=== PATIENT | male | born 1970 ===

== ENCOUNTER 2019-12-31 09:56 | Day surgery (SDC) | payer BC ==
--- NOTE | 2019-12-30 12:14 | PCM.PREANE ---
<Francine Sparks - Last Filed: 12/30/19 12:09> Preanesthetic Assessment - Anesthesia/Transfusion/Family Hx Anesthesia History: Prior Anesthesia Without Reaction Family History of Anesthesia Reaction: No Transfusion History: No Prior Transfusion(s) Intubation History: Unknown - Review of Systems Gastrointestinal: Abdominal Pain (acute/epigastric) Other: Reports: None (History of ADD), Diabetes (History of elevated fasting glucose), Sinus Problem (acute sinusitis) - Physical Assessment NPO Status Date: 12/30/19 Vital Signs: Last Vital Signs Temp 36.6 C 12/31/19 10:30 Pulse 78 12/31/19 10:30 Resp 16 12/31/19 10:30 BP 157/93 H 12/31/19 10:30 Pulse Ox 96 12/31/19 10:30 HR: BP: Sat: Resp: Temp: Height: 1.78 m ASA Class: 2 Mental Status: Alert & Oriented x3 - Lab Values: Laboratory Last Values MRSA (PCR) Negative 12/30/19 11:20 All labs reviewed and noted and within acceptable ranges to proceed with scheduled procedure. - Imaging/EKG Impressions: CXR: negative EKG:SR rate= 73 borderline criteria for LVH. - Anesthesia Plan Pre-Op Medication Ordered: None - Acknowledgements Anesthesia Type Planned: General Anesthesia Pt an Appropriate Candidate for the Planned Anesthesia: Yes Alternatives and Risks of Anesthesia Discussed w Pt/Guardian: Yes Pt/Guardian Understands and Agrees with Anesthesia Plan: Yes PreAnesthesia Questionnaire - CURRENT (IN HOUSE) MEDS Current Meds: Current Medications Lactated Ringer's (Ringers, Lactated) 1,000 mls @ 125 mls/hr IV ASDIRECTED TOREY Stop: 12/31/19 23:00 Lidocaine/Sodium Bicarbonate (Buffered Lidocaine 1% In Ns 8.4%) 0.25 ml IDERM ONETIME PRN PRN Reason: Prior to IV Start Stop: 12/31/19 18:00 Sodium Chloride (Saline Flush) 10 ml FLUSH ASDIRECTED PRN PRN Reason: Keep Vein Open Stop: 12/31/19 18:00 Discontinued Medications Cefazolin Sodium (Ancef) Confirm Administered Dose 2 gm .ROUTE .STK-MED ONE Stop: 12/31/19 05:59 Dexamethasone (Dexamethasone) Confirm Administered Dose 20 mg .ROUTE .STK-MED ONE Stop: 12/31/19 05:59 Fentanyl (Sublimaze) Confirm Administered Dose 250 mcg .ROUTE .STK-MED ONE Stop: 12/31/19 05:59 Hydromorphone HCl (Dilaudid) Confirm Administered Dose 0.5 mg .ROUTE .STK-MED ONE Stop: 12/31/19 05:59 Lidocaine HCl (Xylocaine-Mpf 1%) Confirm Administered Dose 6 mls @ as directed .ROUTE .STK-MED ONE Stop: 12/31/19 05:59 Lactated Ringer's (Ringers, Lactated) Confirm Administered Dose 1,000 mls @ as directed .ROUTE .STK-MED ONE Stop: 12/31/19 05:59 Ketorolac Tromethamine (Toradol) Confirm Administered Dose 30 mg .ROUTE .STK- MED ONE Stop: 12/31/19 05:59 Midazolam HCl (Versed 1 Mg/Ml) Confirm Administered Dose 2 mg .ROUTE .STK-MED ONE Stop: 12/31/19 05:59 Ondansetron HCl (Zofran) Confirm Administered Dose 4 mg .ROUTE .STK-MED ONE Stop: 12/31/19 05:59 Propofol (Diprivan 20 Ml) Confirm Administered Dose 200 mg .ROUTE .STK-MED ONE Stop: 12/31/19 05:59 Rocuronium [place] (Zemuron) Confirm Administered Dose 50 mg .ROUTE .STK-MED ONE Stop: 12/31/19 05:59 <Melina Cuba - Last Filed: 12/31/19 10:58> Preanesthetic Assessment - Procedure Proposed Procedure: Right Achilles Tendon Repair - Anesthesia/Transfusion/Family Hx Anesthesia History: No Prior Anesthesia Family History of Anesthesia Reaction: No - Review of Systems General: No Symptoms Pulmonary: No Symptoms Cardiovascular: No Symptoms Gastrointestinal: Abdominal Pain Neurological: No Symptoms Other: Reports: None, Diabetes (History of elevated fasting glucose x 1 with normal A1C. Blood glucose 92mg/dl today. ), Sinus Problem (sinusitis) - Physical Assessment NPO Status Time: 19:00 Weight: 117 kg ASA Class: 2 Airway Class: Mallampati = 2 Dentition: Reports: Normal Dentition Thyro-Mental Finger Breadths: 3 Mouth Opening Finger Breadths: 3 ROM/Head Extension: Full Lungs: Clear to Auscultation, Normal Respiratory Effort Cardiovascular: Regular Rate, Regular Rhythm - Anesthesia Plan Pre-Op Medication Ordered: None - Acknowledgements Anesthesia Type Planned: General Anesthesia Pt an Appropriate Candidate for the Planned Anesthesia: Yes Alternatives and Risks of Anesthesia Discussed w Pt/Guardian: Yes Pt/Guardian Understands and Agrees with Anesthesia Plan: Yes
[~2019-12-31 09:56] MED LIST: Dexamethasone 4 MG/ML 5 ML MDV ONE; HYDROmorphone 0.5 MG/0.5 ML Syringe ONE; Ketorolac 30 MG/ML SDV ONE; Lactated Ringers 1,000 ML IV SCH; Lactated Ringers 1,000 ML ONE; Lidocaine 1% 6 ML ONE; Lidocaine 1%/Sod Bicarbonate in NS 8.4% 1 ML Syringe IDERM PRN; Midazolam 1 MG/ML 2 ML SDV ONE; Ondansetron 4 MG/2 ML SDV ONE; Propofol 200 MG/20 ML SDV ONE; Rocuronium 50 MG/5 ML Vial ONE; Sodium Chloride 0.9% 10 ML Syringe FLUSH PRN; ceFAZolin 1 GM Vial ONE; fentaNYL 250 MCG/5 ML SDV ONE
[2019-12-31] MEDS ORDERED: Bupivacaine 0.25% 10 ML SDV ONE (11:18)
[2019-12-31] MEDS ORDERED: Propofol 200 MG/20 ML SDV ONE (11:38)
[2019-12-31] MEDS ORDERED: Lactated Ringers 1,000 ML ONE (12:12)
[2019-12-31] MEDS ORDERED: Ondansetron 4 MG/2 ML SDV IVPUSH PRN (12:15)
[2019-12-31] MEDS ORDERED: Phenylephrine 1 MG in Sodium Chloride 0.9% 10 ML IV SCH (12:15)
[2019-12-31] MEDS ORDERED: diphenhydrAMINE 50 MG/ML SDV IVPUSH PRN (12:15)
[2019-12-31] MEDS ORDERED: ePHEDrine 50 MG/ML SDV IVPUSH PRN (12:15)
[2019-12-31] MEDS ORDERED: fentaNYL 100 MCG/2 ML SDV IVPUSH PRN (12:15)
[2019-12-31] MEDS ORDERED: Albuterol 0.083% 2.5 MG/3 ML Neb Soln NEB SCH (12:15)
[2019-12-31] MEDS ORDERED: Midazolam 1 MG/ML 2 ML SDV IVPUSH PRN (12:15)
[2019-12-31] MEDS ORDERED: HYDROmorphone 0.5 MG/0.5 ML Syringe IVPUSH PRN (12:15)
[2019-12-31] MEDS ORDERED: HYDROmorphone 0.5 MG/0.5 ML Syringe ONE (12:28)
[2019-12-31] MEDS ORDERED: Labetalol 100 MG/20 ML MDV ONE (12:58)
--- NOTE | 2019-12-31 13:31 | PCM.POSTAN ---
POST ANESTHESIA ASSESSMENT - MENTAL STATUS Mental Status: Alert - VITAL SIGNS Vital Signs: Last Vital Signs Temp 97.6 12/31/19 1324 Pulse 70 12/31/19 1324 Resp 15 12/31/19 1324 BP 151/77 12/31/19 1324 Pulse Ox 98% 12/31/19 1324 - RESPIRATORY Respiratory Status: Respiratory Rate WNL, Airway Patent, O2 Saturation Stable, Supplemental Oxygen - CARDIOVASCULAR CV Status: Pulse Rate WNL, Blood Pressure Stable - GASTROINTESTINAL GI Status: No Symptoms - POST OP HYDRATION Hydration Status: Adequate & Stable
--- NOTE | 2019-12-31 13:33 | PCM48HPAN ---
Post Anesthesia Note - EVALUATION WITHIN 48HRS OF ANESTHETIC Vital Signs in Normal Range: Yes Patient Participated in Evaluation: Yes Respiratory Function Stable: Yes Airway Patent: Yes Cardiovascular Function Stable: Yes Hydration Status Stable: Yes Pain Control Satisfactory: Yes Nausea and Vomiting Control Satisfactory: Yes Mental Status Recovered: Yes Vital Signs: Last Vital Signs Temp 36.6 C 12/31/19 10:30 Pulse 78 12/31/19 10:30 Resp 16 12/31/19 10:30 BP 157/93 H 12/31/19 10:30 Pulse Ox 96 12/31/19 10:30
[2019-12-31] MEDS ORDERED: Acetaminophen/HYDROcodone 325-5 MG Tab PO PRN (13:41)
--- NOTE | 2020-01-04 07:08 | PCM.OPNOTE ---
- General Post-Op/Procedure Note Date of Surgery/Procedure: 12/31/19 Operative Procedure(s): repair of ruptured right achilles tendon Pre Op Diagnosis: right achilles tendon rupture Post-Op Diagnosis: Same Anesthesia Technique: General ET Tube, Local Primary Surgeon: Sanjiv Chandler Anesthesia Provider: Francine Sparks Primer Assembler: Vale Mast in mLs: 5 Complications: None Condition: Good
--- NOTE | 2020-01-04 07:33 | OR ---
DATE OF OPERATION: 12/31/2019 SURGEON: Sanjiv Chandler MD OPERATION PERFORMED: Repair of ruptured right Achilles tendon. PREOPERATIVE DIAGNOSIS: Right Achilles tendon rupture. POSTOPERATIVE DIAGNOSIS: Right Achilles tendon rupture. ANESTHESIA: General endotracheal intubation with local. ANESTHESIA PROVIDER: Francine Sparks CRNA [place] MANAGER: Vale Mast PA-C ESTIMATED BLOOD LOSS: Less than 5 mL. COMPLICATIONS: None. CONDITION: Stable. DESCRIPTION OF PROCEDURE: The patient was identified in the preoperative holding area. Proper site was marked and identified by surgeon. The patient was taken back to the operating theater where after adequate anesthesia, the patient was placed in prone position. Wedges were placed on the chest. Towel was placed underneath the thighs. The patient's neck and arms were in adequate alignment with no excess tension. Right lower extremity had a nonsterile tourniquet applied and was then sterilely prepped and draped in the usual sterile fashion. OR time-out was performed. The patient received 2 g of IV Ancef. Right lower extremity was exsanguinated. Tourniquet was insufflated to 250 mmHg. Standard incision was made posteriorly over the Achilles tendon rupture. This was taken down to the paratenon. Paratenon was then incised and the hematoma then was evacuated at this time. The patient was noted to have 2 large calcification areas right near the rupture of the Achilles tendon. He had roughly 3 cm to be able to whipstitch distally. After resecting the calcium deposits and any nonviable tendinous fibers, a #5 FiberWire was then stitched using a modified Krackow stitch on the proximal segment and then this was done on the distal segment with another #5. Both limbs were then tied together with the patient's foot in plantar flexion. He was found to have adequate confucianism of the length of the Achilles tendon. A #2 FiberWire was then used for over-sew with [id number] stitches so that there was no loose or fraying ends and that it was a smooth transition of the tendinous tissue. Once this was completed, adequate saline was irrigated through the wound. 0 Vicryl was used for closure of the paratenon, 2-0 Vicryl was used subcutaneously, and Monocryl was used for closure of the skin. The patient was placed in a sterile soft dressing and a posterior slab splint and sent to the PACU in stable condition. MMODAL /[id number]
== END 2019-12-31 15:23 | disposition home or self-care (01) ==
LOC: JD.SDS 09:56
PROVIDERS: ATTEND Orthopaedic Surgery
DX: S86.011A Strain of right Achilles tendon, initial encounter (principal); R03.0 Elevated blood-pressure reading, without diagnosis of hypertension; X58.XXXA Exposure to other specified factors, initial encounter
CPT/HCPCS: 27650; 82962; 87641; A9270; J0690; J1100; J1170; J1885; J2001; J2250; J2405; J2704; J2710; J3010; J3490; J7120; 01472

== ENCOUNTER 2020-07-12 12:59 | Emergency (ER) | payer BC ==
[2020-07-12] MEDS ORDERED: Heparin Sodium/D5W 25,000 UNITS/500 ML BAG IV SCH (13:45)
[2020-07-12] MEDS ORDERED: Heparin Sodium 5,000 Units/ML Vial IVPUSH ONE (13:45)
[2020-07-12] MEDS ORDERED: Sodium Chloride 0.9% 1,000 ML IV STA (13:47)
--- NOTE | 2020-07-12 13:55 | EDM.PDOC ---
ED HPI GENERAL MEDICAL PROBLEM - General Chief Complaint: Respiratory Problem Stated Complaint: FROM CT/HIGH BP Time Seen by Provider: 07/12/20 13:09 Source of Information: Reports: Patient History Limitations: Reports: No Limitations - History of Present Illness INITIAL COMMENTS - FREE TEXT/NARRATIVE: Patient is a 49-year-old male sent to the emergency department from the clinic with complaints of shortness of breath with exertion, elevated blood pressure, and new onset murmur. Patient is post COVID. Was diagnosed on 02 June and discharged from quarantine on 08 June. He states he had very mild symptoms including intermittent fevers, mild cough and some congestion. He has been feeling well since that time, however over the last few days he find that he is increasingly short of breath with exertion. States that he walked for 5 minutes on the treadmill a few days ago and was "panting like a dog ". He denies any chronic underlying medical conditions. Per report from Ava Caro NP in the clinic, patient's oxygen saturations were 83 to 84% with ambulation. D-dimer in the clinic was found to be elevated at 1.64, and she did auscultate a new heart murmur. Ava Yun NP, states that she received a call from radiology while the patient was down to receiving a CT angiogram stated that his blood pressures were elevated at 180/100 and that she is sending him to ER for further evaluation and treatment. - Related Data Allergies Allergy/AdvReac Type Severity Reaction Status Date / Time No Known Allergies Allergy Verified 07/12/20 13:10 Home Meds: Home Meds Dextroamphetamine/Amphetamine [Mydayis ER 25 mg Capsule] 25 mg PO DAILY PRN 12/30/19 [History] Past Medical History HEENT History: Reports: Sinusitis Cardiovascular History: Reports: None Respiratory History: Reports: None Gastrointestinal History: Reports: Helicobacter Pylori Genitourinary History: Reports: None MANAGER IMAGE History: Reports: None Musculoskeletal History: Reports: Other (See Below) Other Musculoskeletal History: right achilles injury Neurological History: Reports: None Psychiatric History: Reports: ADD Endocrine/Metabolic History: Reports: Obesity/BMI 30+ Hematologic History: Reports: None Immunologic History: Reports: None Oncologic (Cancer) History: Reports: None Dermatologic History: Reports: Cellulitis - Infectious Disease History Infectious Disease History: Reports: None - Past Surgical History HEENT Surgical History: Reports: Oral Surgery Cardiovascular Surgical History: Reports: None Respiratory Surgical History: Reports: None GI Surgical History: Reports: None Male Surgical History: Reports: None Endocrine Surgical History: Reports: None Neurological Surgical History: Reports: None Musculoskeletal Surgical History: Reports: None Oncologic Surgical History: Reports: None Dermatological Surgical History: Reports: None Social & Family History - Tobacco Use Smoking Status *Q: Never Smoker - Caffeine Use Caffeine Use: Reports: Coffee, Soda - Recreational Drug Use Recreational Drug Use: No ED ROS GENERAL - Review of Systems Review Of Systems: See Below Constitutional: Reports: No Symptoms. Denies: Fever, Chills, Weakness HEENT: Reports: No Symptoms Respiratory: Reports: Shortness of Breath. Denies: Wheezing, Pleuritic Chest Pain, Cough Cardiovascular: Reports: Dyspnea on Exertion. Denies: Chest Pain, Lightheadedness Endocrine: Reports: No Symptoms GI/Abdominal: Reports: No Symptoms : Reports: No Symptoms Musculoskeletal: Reports: No Symptoms Skin: Reports: No Symptoms Neurological: Reports: No Symptoms Psychiatric: Reports: No Symptoms Hematologic/Lymphatic: Reports: No Symptoms Immunologic: Reports: No Symptoms ED EXAM, GENERAL - Physical Exam Exam: See Below Exam Limited By: No Limitations General Appearance: Alert, WD/WN, No Apparent Distress Respiratory/Chest: No Respiratory Distress, Lungs Clear, Normal Breath Sounds, No Accessory Muscle Use, Chest Non-Tender Cardiovascular: Normal Peripheral Pulses, Regular Rate, Rhythm, No Edema, No Gallop, No JVD, No Murmur, No Rub Neurological: Alert, Oriented, CN II-XII Intact, Normal Cognition, Normal Gait, Normal Reflexes, No Motor/Sensory Deficits Psychiatric: Normal Affect, Normal Mood Skin Exam: Warm, Dry, Intact, Normal Color, No Rash Course - Vital Signs Last Recorded V/S: Last Vital Signs Temp 98.3 F 07/12/20 13:05 Pulse 104 H 07/12/20 13:05 Resp 24 H 07/12/20 13:05 BP 194/106 H 07/12/20 13:05 Pulse Ox 88 L 07/12/20 13:05 - Orders/Labs/Meds Meds: Medications Discontinued Medications Generic Name Dose Route Start Last Admin Trade Name Freq PRN Reason Stop Dose Admin Heparin Sodium (Porcine) 5,000 units 07/12/20 13:45 07/12/20 14:04 Heparin Sodium IVPUSH 07/12/20 13:46 5,000 units .BOLUS ONE Administration Heparin Sodium/Dextrose 25,000 units in 500 mls @ 40.823 mls/hr 07/12/20 13:45 07/12/20 14:11 Heparin 25,000 Units In D5w 500 Ml IV 18 units/kg/hr TITRATE TOREY 40.823 mls/hr Administration Protocol 18 UNITS/KG/HR Sodium Chloride 1,000 mls @ 75 mls/hr 07/12/20 13:47 07/12/20 14:10 Normal Saline IV 07/13/20 03:06 75 mls/hr NOW STA Administration - Re-Assessments/Exams Free Text/Narrative Re-Assessment/Exam: Patient is a 49-year-old male sent to the ER from the clinic with complaints of new onset dyspnea with exertion, as well as elevated blood pressures and a new murmur. Results are received of the CT angiogram that was completed in clinic that shows extensive bilateral pulmonary emboli with findings of mild increased right-sided heart pressures. On exam, patient does have a distinct systolic murmur which he states he was unaware of previously. Blood pressures are mildly elevated 170s over 100s. On triage, oxygen saturation was initially 83% on room air after ambulation back to the room. After rest, he did increase to 92% on room air. He is currently on 1 L of oxygen satting 96%. Discussed results of clinic work-up with the patient and that I feel it would not be safe to send him home. I will be making phone calls to look for available beds for transfer as we have no beds available here in [place]. I placed an order to start patient on an heparin drip per [facility] protocol. 07/12/20 14:25 Phone calls made inquiring on transfer. Unfortunately [facility] has no available beds at either facilities. I did initially have accepting for the patient at [facility], however the patient states that he would rather go to [facility]. Called [facility] and spoke with Dr. Wick, the hospitalist. He has accepted the patient for transfer. One call nurse stated that they will call with a bed number and requested that we hold the patient in the ER until that time. [place] ALEJANDRO, has been working with [facility] for transfer and patient will go by helicopter. Patient's vitals concerning be stable. Patient updated on plan he is in agreement. Departure - Departure Time of Disposition: 14:25 Disposition: DC/Tfer to Acute Hospital 02 Condition: Good Clinical Impression: Pulmonary embolism associated with COVID-19 - Discharge Information Referrals: Jennifer Dooley PA-C [Primary Care Provider] - Forms: ED Department Discharge Sepsis Event Note (ED) - Evaluation Sepsis Screening Result: No Definite Risk - Focused Exam Vital Signs: Vital Signs Temp Pulse Resp BP Pulse Ox 07/12/20 13:05 98.3 F 104 H 24 H 194/106 H 88 L
--- OUTSIDE RECORDS SUMMARY | 2020-07-19 08:48 | XMSREPORT ---
:1970 Author Organization [facility] s Address [address] [place] [address] [address] [place] [address] Care Team Providers Name Role Phone Provider, Attributed RESOURCE Attributed Provider Unavailab Sandra Martinez Primary Care Provider Ridge Dooley Primary Care Provider Reason for Visit Reason Comments Auth/Cert Status Reason Specialty Diagnoses / Procedures Referred By Gabriela connolly Referred To Contact Encounter Details Date Type Department Care Team Description 07/12/2020 - [facility] Provider, Generic Hosp Pr ocedure Acute pulmonary 07/14/2020 Encounter [facility] Stiven Dominguez MD [address] [place] [address] [phone] embolism (HCC) [address] [facility] Simon Diaz MD [address] [place] [address] [phone] [place] [address] Allergies No Known Allergiesdocumented as of this encounter (statuses as of 07/14/2020) Medications Medication Sig Dispensed Refills Start End Status Date Date apixaban (ELIQUIS) Take 2 tablets (10 74 tablet 4 07/14/20 Active 5 MG mg) by mouth 2 20 tabletIndications: times a day for 7 Venous days, followed by Thromboembolism 1 tablet (5 mg) 2 times a day. amphetamine-dextroa Take 20 mg by 0 10/09/20 Discontinued mphetamine mouth 1 time a day 16 020 (Stop Taking at (ADDERALL XR) 20 MG in the morning Discharge) extended release capsule apixaban (ELIQUIS) Indications: 74 tablet 0 07/14/20 Discontinued 5 MG Venous 20 020 (Reorder) tabletIndications: Thromboembolism Venous Take 2 tablets (10 Thromboembolism mg) by mouth 2 times a day for 7 days, followed by 1 tablet (5 mg) 2 times a day. apixaban (ELIQUIS) Take 2 tablets (10 74 tablet 4 07/14/20 Discontinued 5 MG mg) by mouth 2 20 020 (Reor esteban) tabletIndications: times a day for 7 Venous days, followed by Thromboembolism 1 tablet (5 mg) 2 times a day. documented as of this encounter (statuses as of 07/14/2020) Active Problems Problem Noted Date Acute pulmonary embolism 07/12/2020 documented as of this encounter (statuses as of 07/14/2020) Social History Tobacco Use Types Packs/Day Years Used Date Never Smoker Smokeless Tobacco: Never Used Alcohol Use Drinks/Week oz/Week Comments Yes socially Sex Assigned at Date Recorded Not on file Job Start Date Occupation Industry Not on file Not on file Not on file Travel History Travel Start Travel End No recent travel history available. documented as of this encounter Last Filed Vital Signs Vital Sign Reading Time Taken Comments Blood Pressure 134/83 07/14/2020 12:00 PM CDT Pulse 77 07/14/2020 12:00 PM CDT Temperature 36.2 C (97.1 F) 07/14/2020 4:00 AM CDT Respiratory Rate 23 07/13/2020 7:34 AM CDT Oxygen Saturation 95% 07/14/2020 12:00 PM CDT Inhaled Oxygen Concentration - - Weight 116.6 kg (257 lb) 07/12/2020 7:28 PM CDT Height 176.5 cm (5' 9.5") 07/12/2020 7:28 PM CDT Body Mass Index 37.41 07/12/2020 7:28 PM CDT documented in this encounter Functional Status Functional Status Response Date of Assessment Do you have difficulty with walking, balance, climbing No 07/13/2020 stairs, or had a fall in the last 3 months? documented as of this encounter Discharge Summaries Not on filedocumented in this encounter Discharge Instructions Brooks Kovacs, PHARM D - 07/14/2020Anticoagulation: Take Apixaban (Eliquis) 10 mg by mouth two times per day for 7 days (through the morning of 07/21/20), then take 5 mg by mouth two times per day until your physician tells you otherwise documented in this encounter Medications at Time of Discharge Medication Sig Dispensed Refills Start Date End Date apixaban (ELIQUIS) 5 MG Take 2 tablets (10 74 tablet 4 06/28 tabletIndications: Venous mg) by mouth 2 times Thromboembolism a day for 7 days, followed by 1 tablet (5 mg) 2 times a day. documented as of this encounter Progress Notes Stiven Dominguez MD - 07/13/2020 1:00 AM [facility] PATIENT NAME: KILO PHILLIPS DATE OF SERVICE: 07/13/2020 FRANCIS: [id number] INTERVAL HISTORY: This is a 49-year-old gentleman who recently had COVID infection, presented with progressive shortness of breath, found to have extensive bilateral PE with right ventricular strain.Patient is seen by cardiology and plan for the EKOS procedure with TPA thrombolysis. REVIEW OF SYSTEMS: CONSTITUTIONAL: Negative. CHEST: Negative. CARDIOVASCULAR: Negative. MUSCULOSKELETAL: Unchanged. GASTROINTESTINAL: Negative. PHYSICAL EXAMINATION: VITALS: Temperature 97.2, pulse 79, blood pressure 143/88. GENERAL: Alert, awake, lying comfortably, in no respiratory distress. CHEST: Air entry equal bilaterally. No wheeze, rhonchi. CARDIOVASCULAR: S1, S2 normal. No murmur or gallop. SKIN: No pigmentation or rashes. MUSCULOSKELETAL: Moves grossly. ASSESSMENT AND PLAN: 1. Acute bilateral PE with right ventricular strain. Patient underwent successful bilateral placement of EKOS catheter in the right and left pulmonary arteries and with T-wave thrombolysis 6 hours and then follow up tomorrow and see how he does. Continue with. 2. GI prophylaxis, on Prilosec 20 mg twice daily. Stiven Dominguez MD Receipt: [id number] Trans ID: [id number]/[facility] PEDIATRIC PATHOLOGIST PEDIATRIC PATHOLOGIST Brooks Fontana, PHARM D - 07/12/2020 11:29 PM CDT Warfarin Initial Consult Note Mr. Phillips has been initiated on warfarin per pharmacy protocol for PE. Desired goal INR is 2-3. Patient is being newly started on anticoagulation therapy. Clinically significant drug interactions: Acetaminophen, heparin Labs: Lab Results Component Value Date INR 1.1 (L) 07/12/2020 PT 13.9 07/12/2020 Protime Date/Time Value Ref Range Status 07/12/2020 06:54 PM 13.9 12.0 - 14.5 secs Final INR Date/Time Value Ref Range Status 07/12/2020 06:54 PM 1.1 (L) 2.0 - 3.5 Final Platelet Count Date/Time Value Ref Range Status 07/12/2020 06:54 PM 217 140 - 400 K/uL Final Hemoglobin Date/Time Value Ref Range Status 07/12/2020 06:54 PM 18.1 (H) 13.5 - 17.5 g/dL Final Plan: Warfarin: 5 mg today. Pharmacy will monitor and if indicated, adjust dose per the anticoagulation policy. Thank you very much for the consult. Brooks Ingram, PHARM D documented in this encounter Plan of Treatment Name Type Priority Associated Diagnoses Date/Ti me ECHO ADULT COMPLETE CVS STAT 07/12/20 20 6:21 PM CDT EKG CVS STAT 07/13/2020 5:3 2 PM CDT EKG CVS Routine 07/14/2020 6:4 9 AM CDT Name Type Priority Associated Diagnoses Order S chedule PROTIME/INR Lab Routine Early AM draw f or labs until discontin ued starting 2019, 2 completed COMPLETE BLOOD COUNT WITH Lab Routine Ea rly AM draw for labs DIFFERENTIAL for 3 Days star ting 07/14/2020 unti l 07/16/2020, 1 c ompleted BASIC METABOLIC PANEL Lab Routine Early AM draw for labs for 3 Days star ting 07/14/2020 unti l 07/16/2020, 1 c ompleted documented as of this encounter Procedures Procedure Name Priority Date/Time Associated Comments Diagnosis ECHO ADULT LIMITED Routine 07/14/2020 1:22 Resul ts for this PM CDT procedure are i n the results section. LAB ONLY-COMPLETE Routine 07/14/2020 10:37 Result s for this BLOOD COUNT WITH AM CDT procedure a re in DIFFERENTIAL the results section. MAGNESIUM Routine 07/14/2020 10:37 Results for this AM CDT procedure are i n the results section. BASIC METABOLIC PANEL Routine 07/14/2020 10:37 Re sults for this AM CDT procedure are i n the results section. LAB ONLY-COMPLETE Routine 07/14/2020 10:37 Result s for this BLOOD COUNT WITH AM CDT procedure a re in DIFFERENTIAL the results section. PTT Timed Routine 07/14/2020 7:55 Results fo r this AM CDT procedure are i n the results section. PROTIME/INR Routine 07/14/2020 6:06 Results for this AM CDT procedure are i n the results section. PTT Timed Routine 07/13/2020 9:29 Results fo r this PM CDT procedure are i n the results section. FIBRINOGEN Timed Routine 07/13/2020 9:29 Results fo r this PM CDT procedure are i n the results section. PTT Timed Routine 07/13/2020 6:23 Results fo r this PM CDT procedure are i n the results section. FIBRINOGEN Timed Routine 07/13/2020 6:23 Results fo r this PM CDT procedure are i n the results section. MISC PROCEDURE CATH Routine 07/13/2020 4:01 Resu lts for this LAB PM CDT procedure are i n the results section. PTT Timed Routine 07/13/2020 8:32 Results fo r this AM CDT procedure are i n the results section. LAB ONLY-COMPLETE Routine 07/13/2020 5:22 Result s for this BLOOD COUNT WITH AM CDT procedure a re in DIFFERENTIAL the results section. PROTIME/INR Routine 07/13/2020 5:22 Results for this AM CDT procedure are i n the results section. BASIC METABOLIC PANEL Routine 07/13/2020 5:22 Re sults for this AM CDT procedure are i n the results section. LAB ONLY-COMPLETE Routine 07/13/2020 5:22 Result s for this BLOOD COUNT WITH AM CDT procedure a re in DIFFERENTIAL the results section. PTT Timed Routine 07/13/2020 2:22 Results fo r this AM CDT procedure are i n the results section. TROPONIN I Timed Routine 07/13/2020 12:26 Results fo r this AM CDT procedure are i n the results section. TROPONIN I Timed Routine 07/12/2020 9:40 Results fo r this PM CDT procedure are i n the results section. LACTIC ACID REFLEX TO Routine 07/12/2020 6:54 Re sults for this REPEAT PM CDT procedure are i n the results section. PTT RUBY 07/12/2020 6:54 Results for this PM CDT procedure are i n the results section. PROTIME/INR RUBY 07/12/2020 6:54 Results for this PM CDT procedure are i n the results section. COMPLETE BLOOD COUNT RUBY 07/12/2020 6:54 Res ults for this WITHOUT DIFFERENTIAL PM CDT procedu re are in the results section. TROPONIN I Timed Routine 07/12/2020 6:54 Results fo r this PM CDT procedure are i n the results section. PHOSPHORUS RUBY 07/12/2020 6:54 Results for this PM CDT procedure are i n the results section. MAGNESIUM RUBY 07/12/2020 6:54 Results for this PM CDT procedure are i n the results section. COMPREHENSIVE RUBY 07/12/2020 6:54 Results fo r this METABOLIC PANEL PM CDT procedure ar e in the results section. documented in this encounter Results ECHO ADULT LIMITED (07/14/2020 1:22 PM CDT) Specimen Narrative Performed At This result has an attachment that is no t available. [facility] Patient: KILO PHILLIPS MR#: [id number] Exam Date: 07/14/2020 Transthoracic Echocardiogram [place] [address] [place] [address] BP: 134/83 mmHg HR: 87 bpm : 1970 Exam Location: Bedside Height: 69.00 "(175.3 cm) Age: 49 year(s) Patient Room: [facility] Weight: 257 lbs.(116.57 kg) Gender: Male Patient Status: Inpatient BSA: 2.3 m2 Nuclear Medicine Specialist: HONEY DENIS RDCS Reading Physician: MOE SPAULDING MD Ordering Physician: MOE SPAULDING MD Procedure Indication(s): B/L PE Examination: TTE Limited 2D, Limited Spectral Doppler, Color Doppler Conclusions Left Ventricle: Normal left ventricular systolic functio n. The ejection fraction is visually estimated to be 70 %. Right Ventricle: Upper limits of normal right ventricular size. Normal right ventricular systolic function. Comparison Study Comparison Date: 07/13/2020 Comparison Study: Transthoracic Echocardiogram Unable to make direct comparison with prior echo Findings Left Ventricle: Normal left ventricular size. Normal lef t ventricular wall thickness. Normal left ventricular systolic function. The ejection fraction is visually estimated to be 70 %. There are no left ventricular regional wall motion abnormalities. Left Atrium: Normal left atrial size by visual assessment. Aortic Valve: The aortic valve is tricuspid. No signif icant aortic regurgitation. No aortic stenosis. Mitral Valve: Normal mitral valve structure. Trivial mitral regurgit ation. IAS: No gross evidence of shunt flow seen; ho wever the possibility of a PFO cannot be completely ruled out. Right Ventricle: Upper limits of normal right ventricular size. Normal right ventricular systolic function. Normal right ventricular wall thickness. TAPSE measures 26 mm. Tricuspid valve la teral annulus peak systolic velocity is 16.1 cm/sec. Pulmonary Artery: The tricuspid jet envelope definition is inadequate for estimation of RV systolic pressure. Right Atrium: Normal right atrial size by visual assessment. Tricuspid Valve: Normal tricuspid valve structure. Trivial tricuspid re gurgitation. Pulmonic Valve: Normal pulmonary valve structure. Trivial pulmonary re gurgitation. IVC: Dilated IVC with normal respirophasic changes. Pericardium: No significant pericardial effusion. There is pericard ial fat. Measurements Left Ventricle Label Value Norm al Value LVDd, 2D 47 mm LVDs, 2D 27.6 mm IVSd, 2D 8.3 mm LVPWd, 2D 10.1 mm FS, 2D 41 % LVEDV, 2D 102 ml LVESV, 2D 28 ml Right Ventricle Label Value Norm al Value TAPSE 26 mm S' Tissue Doppler 16.1 cm/sec Heart Rate Label Value Norm al Value Heart Rate 87 bpm 20 at 01:51 PM (No Signature Object) Procedure Note Interface, Inc Results No Pull Forward - 07/14/2020 1:53 PM CDT Patient: KILO PHILLIPS MR#: [id number] Exam Date: 07/14/2020 Transthoracic Echocardiogram [facility] [address] [place] [address] BP: 134/83 mmHg HR: 87 bpm : 1970 Exa m Location: Bedside Height: 69.00 "(175.3 cm) Age: 49 year(s) Pat ient Room: [facility] Weight: 257 lbs.(116.57 kg) Gender: Male Pat ient Status: Inpatient BSA: 2.3 m2 Nuclear Medicine Specialist: HONEY NELSON RDCS Reading Physician: MOE BONNER MD Ordering Physician: MOE BONNER MD Procedure Indication(s): B/L PE Examination: TTE Li mited 2D, Limited Spectral Doppler, Color Doppler Conclusions Left Ventricle: Normal left ventricular systolic functio n. The ejection fraction is visually estimated to be 70 %. Right Ventricle: Upper limits of normal right ventricular size. Normal right ventricular systolic function. Comparison Study Comparison Date: 07/13/2020 Comparison Study: Transthoracic Echocard iogram Unable to make direct comparison with pr ior echo Findings Left Ventricle: Normal left ventricular size. Normal lef t ventricular wall thickness. Normal left ventricular systolic function. The ejection fraction is visually estimated to be 70 %. There are no left ventricular regional wall motion abnormalities. Left Atrium: Normal left atrial size by visual assess ment. Aortic Valve: The aortic valve is tricuspid. No signif icant aortic regurgitation. No aortic stenosis. Mitral Valve: Normal mitral valve structure. Trivial m itral regurgitation. IAS: No gross evidence of shunt flow seen; ho wever the possibility of a PFO cannot be completely ruled out. Right Ventricle: Upper limits of normal right ventricular size. Normal right ventricular systolic function. Normal right ventricular wall thickness. TAPSE measures 26 mm. Tricuspid valve la teral annulus peak systolic velocity is 16.1 cm/sec. Pulmonary Artery: The tricuspid jet envelope definition is inadequate for estimation of RV systolic pressure. Right Atrium: Normal right atrial size by visual asses sment. Tricuspid Valve: Normal tricuspid valve structure. Trivia l tricuspid regurgitation. Pulmonic Valve: Normal pulmonary valve structure. Trivia l pulmonary regurgitation. IVC: Dilated IVC with normal respirophasic ch anges. Pericardium: No significant pericardial effusion. The re is pericardial fat. Measurements Left Ventricle Label Value Nor mal Value LVDd, 2D 47 mm LVDs, 2D 27.6 mm IVSd, 2D 8.3 mm LVPWd, 2D 10.1 mm FS, 2D 41 % LVEDV, 2D 102 ml LVESV, 2D 28 ml Right Ventricle Label Value Nor mal Value TAPSE 26 mm S' Tissue Doppler 16.1 cm/sec Heart Rate Label Value Nor mal Value Heart Rate 87 bpm (No Signature Object) Performing Organization Address City/State/Zipcode Phone Number [facility] F, [place] LAB ONLY-COMPLETE BLOOD COUNT WITH DIFFERENTIAL (07/14/2020 10:37 AM CDT) Pathologist Sig nature WBC 8.1 4.0 - 11.0 K/uL [address] RBC 5.69 4.40 - 5.80 M/uL [address] Hemoglobin 16.4 13.5 - 17.5 g/dL [address] Hematocrit 48.5 40.0 - 50.0 % [address] MCV 85.2 80.0 - 98.[address] MCH 28.8 25.5 - 34.[address] MCHC 33.8 31.5 - 36.5 g/dL [address] RDW-CV 13.4 11.5 - 15.5 % [address] RDW-SD 41.3 35.5 - 50.[address] Platelet Count 167 140 - 400 K/uL [address] MPV 9.6 8.5 - 12.[address] Seg Neut Absolute 5.0 1.8 - 8.0 K/uL [address] Lymphocytes Absolute 2.2 0.8 - 4.1 K/uL [place] [address] [facility] Monocytes Absolute 0.7 0.0 - 1.0 K/uL [place] [address] [facility] Eosinophils Absolute 0.2 0.0 - 0.7 K/uL [place] [address] [facility] Basophil Absolute 0.0 0.0 - 0.2 K/uL [place] [address] [facility] Immature Granulocyte 0.01 0.00 - 0.06 K/uL [place] [address] [facility] [place] Absolute Neutrophils Abs. (Segs 5,000 /uL [place] [address] [facility] and Bands) Neutrophils Percent 61.6 % [place] [address] [facility] Lymphocytes Percent 27.3 % [place] [address] [facility] Monocytes Percent 8.0 % [place] [address] [facility] Immature Granulocyte 0.1 % [address] Percent Eosinophils Percent 2.6 % [address] Basophil Percent 0.4 % [address] Nucleated RBC 0 /[address] Specimen Blood Performing Organization Address [facility] Phone Number [address] [place] [phone] MAGNESIUM (07/14/2020 10:37 AM CDT) Pathologist Sig nature Magnesium 1.9 1.8 - 2.4 mg/dL [address] Specimen Blood Performing Organization Address [facility] Phone Number [address] [place] [phone] BASIC METABOLIC PANEL (07/14/2020 10:37 AM CDT) Pathologist Sig nature Glucose 114 (H) 70 - 100 mg/dL [address] BUN 8 6 - 22 mg/dL [address] Creatinine 1.00 0.80 - 1.[address] mg/dL BUN/Creatinine Ratio 8.0 (L) 10.0 - 25.[address] Sodium 139 135 - 145 meq/L [address] Potassium 4.2 3.5 - 5.3 meq/L [address] Chloride 107 99 - 110 meq/L [address] CO2 20 20 - 29 meq/L [address] Anion Gap with K 16 6 - 20 meq/L [address] Calcium 9.1 8.5 - 10.5 mg/dL [address] Age [address] eGFR Non- 79 >=[address] Sammar[place] mL/min/1.73m2 eGFR >90 >=[address] mL/min/1.73m2 Specimen Blood Performing Organization Address [facility] Phone Number [address] [place] [id number] PTT (07/14/2020 7:55 AM CDT) Pathologist Sig nature APTT 104 (H) 24 - 35 secs [place] [address] [facility] Specimen Blood Performing Organization Address [facility] Phone Number [address] [place] [address] PROTIME/INR (07/14/2020 6:06 AM CDT) Pathologist Sig nature Protime 16.0 (H) 12.0 - 14.[address] INR 1.3 (L) 2.0 - 3.[address] Specimen Blood Narrative Performed At Normal INR reference range (patients not on oral antic oagulants) [address] 0.9-1.1. INR Standard Intensity = (2.0 - 3.0) INR Higher Intensity = (2.5 - 3.5) Performing Organization Address [facility] Phone Number [address] [place] [address] PTT (07/13/2020 9:29 PM CDT) Pathologist Sig nature APTT 32 24 - [address] Specimen Blood Performing Organization Address [facility] Phone Number [address] [place] [address] FIBRINOGEN (07/13/2020 9:29 PM CDT) Pathologist Sig nature Fibrinogen 303 200 - 450 mg/dL [address] Specimen Blood Performing Organization Address [facility] Phone Number [address] [place] [address] PTT (07/13/2020 6:23 PM CDT) Pathologist Sig nature APTT 33 24 - [address] Specimen Blood Performing Organization Address [facility] Phone Number [address] [place] [address] FIBRINOGEN (07/13/2020 6:23 PM CDT) Pathologist Sig nature Fibrinogen 301 200 - 450 mg/dL [address] Specimen Blood Performing Organization Address [facility] Phone Number [address] [place] [address] [facility] PROCEDURE SOIL CHEMIST (07/13/2020 4:01 PM CDT) Specimen Narrative Performed At This result has an attachment that is no t available. [facility] Patient: KILO PHILLIPS [facility] Exam Date: 07/13/[address] Exam Time: 04:01 PM-04:48 PM [place] [address] Department of Interventional Cardiology Pulmonary Interventional Report : 1970 Fluoro Time: 7.5 min. Patient Status: Inpatient Age: 49 year(s) Cath Status: Patient Room: [address] [place] [address] cristino: Male Diagnostic Freight Dispatcher: MOE SPAULDING MD Indication: Pulmonary embolism. Procedures Performed: Fluoro 0.1-60 Minutes. Medication/Infusi on/Drip. Ultrasound Guided Access. Leonides Access - R internal jugular. Leonides Access Exchange - R internal jugular. Pulmonary Lysis-Bilateral. Sheath Sutured In Place. Diagnostic Findings: Successful Placement of EKOS catheters using USG & Flu oroscopy for guidance. Procedure Narrative: Access Right internal jugular: Vascular access was obtained using modif ied seldinger technique under ultrasound imaging guidance and a 5F MICROPUNCTURE SET 45-754 was advanced into the vessel. The sheath was exchanged from a 5F MICROPUNCTURE SET 45-754 sheath to a GLIDESHEATH PNCLE TIF TIP 6FR sheath. Hemostasis/Sheath Status: The sheath was sutured in place. Right internal jugular: Vascular access was obtained using modif ied seldinger technique under ultrasound imaging guidance and a 5F MICROPUNCTURE SET 45-754 was advanced into the vessel. The sheath was exchanged from a 5F MICROPUNCTURE SET 45-754 sheath to a GLIDESHEATH PNCLE TIF TIP 6FR sheath. Hemostasis/Sheath Status: The sheath was sutured in pl joseph. Additional Procedures Pulmonary Lysis- Bilateral was performed using an EKOSONIC INFUS 12CM 135CM and an EKOSONIC INFUS 12CM 106CM. Patient prepped and draped in usual sterile fashion, venous access obtained using ultrasound guidance. Two 6 Sinhala 11 c m sheaths placed. Jaimes catheter inserted. Pulmonary artery pressure obtained and recorded. Jaimes catheter removed. EKOS catheter inserted over Glidewire advantage. Treatment zone size verifie d. Coolant and thrombolytic agent (Alteplase) connected and ultrasound core inserted. Jaimes joycelyn ter reinserted. Glidewire advantage advanced. Jaimes catheter removed. Second EKOS catheter inserted . Second treatment zone size verified. Coolant and thrombolytic agent (Alteplase) connected and ultrasou nd core inserted. Catheters secured with Tegaderms and patient sent to the Cardiac intensive care unit. Alteplase infusion ordered to continue for 6 hours. Fluoro 0.1-60 Minutes was performed. Hemodynamic Impressions General Impressions: Hemodynamic assessm ent demonstrates PA pressure moderately elevated. Hemodynamic Findings Pressures: Baseline: PA pressure 55/24mmHg, mean 34. Hemodynamic Pressures-Phase: Baseline Location : PA Pressure s : 55 mmHg Pressure d : 24 mmHg Pressure m : 34 mmHg HR : 86 bpm Flow Calculations, Phase: Baseline VO2: 289.34 ml/min Shunts Contrast: Description Dose Unit HIS No. Reference No. Serial No. Lot No. Acute complication: No complications Ordering Physician: MOE SPAULDING MD [facility] Senior [employer] Dba: JEANCARLOS PATEL RN Scrub: PEPPER ANTOINE Monitor: VALERY WEEMS Community Associate: RON BERNAL, RT(R) Primary Freight Dispatcher: MOE SPAULDING MD Community Associate: LUCIE PEREZ RT(R) 20 at 04:13 PM (No Signature Object) Procedure Note Interface, Inc Results No Pull Forward - 07/14/2020 4:13 PM CDT Patient: KILO PHILLIPS [facility] Exam Date: 07/13/[address] Exam T marilee: 04:01 PM-04:48 [place] [address] [facility] of Interventional Cardiology Pulmonary Interventional Report : 1970 Fluoro Time: 7.5 min. Patient Status: Inpatient Age: 49 year(s) Cath Status: Patient Room: [facility] Gender: Male Diagnostic Freight Dispatcher: MOE RYAN MD Indication: Pulmonary embolism. Procedures Performed: Fluoro 0.1-60 Minutes. Medication/Infusi on/Drip. Ultrasound Guided Access. Leonides Access - R internal jugular. Leonides Access Exchange - R internal jugular. Pulmonary Lysis-Bilateral. Sheath Sutured In Place. Diagnostic Findings: Successful Placement of EKOS catheters [facility] for guidance. Procedure Narrative: Access Right internal jugular: Vascular access was obtained using modif ied seldinger technique under ultrasound imaging guidance and a 5F MICROPUNCTURE SET 45-754 was advanced into the vessel. The sheath was exchanged from a 5F MICROPUNCTURE SET 45-754 sheath to a GLI DESHEATH PNCLE TIF TIP 6FR sheath. Hemostasis/Sheath Status: The sheath was sutured in place. Right internal jugular: Vascular access was obtained using modif ied seldinger technique under ultrasound imaging guidance and a 5F MICROPUNCTURE SET 45-754 was advanced into the vessel. The sheath was exchanged from a 5F MICROPUNCTURE SET 45-754 sheath to a GLI DESHEATH PNCLE TIF TIP 6FR sheath. Hemostasis/Sheath Status: The sheath was sutured in place. Additional Procedures Pulmonary Lysis- Bilateral was performed using an EKOSONIC INFUS 12CM 135CM and an EKOSONIC INFUS 12CM 106CM. Patient prepped and d raped in usual sterile fashion, venous access obtained using ultrasound guidance. Two 6 Sinhala 11 cm sheaths placed. Jaimes catheter inserted. Pulmonary artery pressure obtained and recorded. Jaimes catheter removed. EKOS catheter inserted over Glidewire advantage. Treatment zone size verified . Coolant and thrombolytic agent (Alteplase) connected and ultrasound core inserted. Jaimes cathet er reinserted. Glidewire advantage advanced. Jaimes catheter removed. Second EKOS catheter inserted. Second treatment zone size verified. Coolant and thrombolytic agent (Alteplase) connected and ultrasou nd core inserted. Catheters secured with Tegaderms and patient sent to the Cardiac intensive care unit. Alteplase infusion ordered to continue for 6 hours. Fluoro 0.1-60 Minutes was performed. Hemodynamic Impressions General Impressions: Hemodynamic assessm ent demonstrates PA pressure moderately elevated. Hemodynamic Findings Pressures: Baseline: PA pressure 55/24m mHg, mean 34. Hemodynamic Pressures-Phase: Baseline Location : PA Pressure s : 55 mmHg Pressure d : 24 mmHg Pressure m : 34 mmHg HR : 86 bpm Flow Calculations, Phase: Baseline VO2: 289.34 ml/min Shunts Contrast: Description Dose Unit HIS No. Reference No. Serial No. Lot No. Acute complication: No complicatio ns Ordering Physician: MOE SPAULDING MD CCL Senior Oracle Dba: JEANCARLOS JUAREZ, RN Scrub: PEPPER CISNEROS Monitor: VALERY Duffy Community Associate: RON GUADARRAMA, RT(R) Primary Freight Dispatcher: MOE SPAULDING MD Community Associate: LUCIE KC, RT(R) (No Signature Object) Performing Organization Address [facility]/Zipcode Phone Number [facility], [place] PTT (07/13/2020 8:32 AM CDT) Pathologist Sig [facility] APTT 98 (H) 24 - [address] Specimen Blood Performing Organization Address [facility] Phone Number [address] [place] [address] LAB ONLY-COMPLETE BLOOD COUNT WITH DIFFERENTIAL (07/13/2020 5:22 AM CDT) Pathologist [facility] WBC 7.0 4.0 - 11.0 K/uL [address] RBC 5.74 4.40 - 5.80 M/uL [address] Hemoglobin 16.5 13.5 - 17.5 g/dL [address] Hematocrit 49.2 40.0 - 50.0 % [address] MCV 85.7 80.0 - 98.[address] MCH 28.7 25.5 - 34.[address] MCHC 33.5 31.5 - 36.5 g/dL [address] RDW-CV 13.4 11.5 - 15.5 % [address] RDW-SD 41.5 35.5 - 50.[address] Platelet Count 177 140 - 400 K/uL [address] MPV 9.7 8.5 - 12.[address] Seg Neut Absolute 3.4 1.8 - 8.0 K/uL [place] [address] [facility] Lymphocytes Absolute 2.7 0.8 - 4.1 K/uL [place] [address] [facility] Monocytes Absolute 0.6 0.0 - 1.0 K/uL [place] [address] [facility] Eosinophils Absolute 0.2 0.0 - 0.7 K/uL [place] [address] [facility] Basophil Absolute 0.0 0.0 - 0.2 K/uL [address] Immature Granulocyte 0.03 0.00 - 0.06 K/uL [place] [address] [facility] [place] Absolute Neutrophils Abs. (Segs 3,400 /uL [place] [address] [facility] C and Bands) Neutrophils Percent 49.3 % [address] Lymphocytes Percent 39.3 % [address] Monocytes Percent 8.2 % [address] Immature Granulocyte 0.4 % [place] [address] [facility] Percent Eosinophils Percent 2.4 % [address] Basophil Percent 0.4 % [address] Nucleated RBC 0 /[address] Specimen Blood Performing Organization Address [facility] Phone Number [address] [address] PROTIME/INR (07/13/2020 5:22 AM CDT) Pathologist [facility] nature Protime 13.7 12.0 - 14.[address] INR 1.1 (L) 2.0 - 3.[address] Specimen Blood Narrative Performed At Normal INR reference range (patients not on oral antic oagulants) [address] 0.9-1.1. INR Standard Intensity = (2.0 - 3.0) INR Higher Intensity = (2.5 - 3.5) Performing Organization Address [facility] Phone Number [address] [address] BASIC METABOLIC PANEL (07/13/2020 5:22 AM CDT) Pathologist [facility] Glucose 102 (H) 70 - 100 mg/dL [address] BUN 12 6 - 22 mg/dL [address] Creatinine 0.90 0.80 - 1.[address] mg/dL BUN/Creatinine Ratio 13.3 10.0 - 25.[address] Sodium 141 135 - 145 meq/L [address] Potassium 4.0 3.5 - 5.3 meq/L [address] Chloride 110 99 - 110 meq/L [address] CO2 20 20 - 29 meq/L [address] Anion Gap with K 15 6 - 20 meq/L [address] Calcium 9.1 8.5 - 10.5 mg/dL [address] Age [address] eGFR Non- 89 >=[address] [place] mL/min/1.73m2 eGFR >90 >=[address] mL/min/1.73m2 Specimen Blood Performing Organization Address [facility] Phone Number [address] [place] [address] PTT (07/13/2020 2:22 AM CDT) Pathologist Sig nature APTT 87 (H) 24 - [address] Specimen Blood Performing Organization Address [facility] Number [address] [place] [address] TROPONIN I (07/13/2020 12:26 AM CDT) Pathologist Sig nature Troponin I 0.035 (H) 0.000 - 0.028 ng/mL [address] Specimen Blood Performing Organization Address [facility] Phone Number [address] [place] [address] TROPONIN I (07/12/2020 9:40 PM CDT) Pathologist Sig nature Troponin I 0.040 (H) 0.000 - 0.028 ng/mL [address] Specimen Blood Performing Organization Address [facility] Phone Number [address] [place] [address] PROTIME/INR (07/12/2020 6:54 PM CDT) Pathologist Sig nature Protime 13.9 12.0 - 14.[address] INR 1.1 (L) 2.0 - 3.[address] Specimen Blood Narrative Performed At Normal INR reference range (patients not on oral antic oagulants) [address] 0.9-1.1. INR Standard Intensity = (2.0 - 3.0) INR Higher Intensity = (2.5 - 3.5) Performing Organization Address [facility] Phone Number [address] [place] [address] COMPLETE BLOOD COUNT WITHOUT DIFFERENTIAL (07/12/2020 6:54 PM CDT) Pathologist Sig [facility] WBC 8.8 4.0 - 11.0 K/uL [address] RBC 6.27 (H) 4.40 - 5.80 M/uL [address] Hemoglobin 18.1 (H) 13.5 - 17.5 g/dL [address] Hematocrit 52.9 (H) 40.0 - 50.0 % [address] MCV 84.4 80.0 - 98.[address] MCH 28.9 25.5 - 34.[address] MCHC 34.2 31.5 - 36.5 g/dL [address] RDW-CV 13.4 11.5 - 15.5 % [address] RDW-SD 40.8 35.5 - 50.[address] Platelet Count 217 140 - 400 K/uL [address] MPV 9.7 8.5 - 12.[address] Specimen Blood Performing Organization Address City/State/Zipcode Phone Number [address] [place] [phone] COMPREHENSIVE METABOLIC PANEL (07/12/2020 6:54 PM CDT) Pathologist [facility] Glucose 122 (H) 70 - 100 mg/dL [address] BUN 13 6 - 22 mg/dL [address] Creatinine 1.11 0.80 - 1.[address] mg/dL BUN/Creatinine Ratio 11.7 10.0 - 25.[address] Sodium 140 135 - 145 meq/L [address] Potassium 4.3 3.5 - 5.3 meq/L [address] Chloride 106 99 - 110 meq/L [place] [address] [facility] CO2 21 20 - 29 meq/L [address] Anion Gap with K 17 6 - 20 meq/L [address] Calcium 9.8 8.5 - 10.[address] mg/dL Protein Total 7.7 6.0 - 8.2 g/dL [address] Albumin 4.3 3.5 - 5.0 g/dL [address] Alkaline Phosphatase 71 30 - 150 U/L [address] AST - SGOT 21 0 - 35 U/L [address] ALT - SGPT 30 0 - 55 U/L [address] Bilirubin Total 0.5 0.2 - 1.2 mg/dL [address] Age [address] eGFR Non- 70 >=[address] [place] mL/min/1.73m2 eGFR 85 >=[address] mL/min/1.73m2 Specimen Blood Performing Organization Address [facility] Phone Number [address] [place] [address] PHOSPHORUS (07/12/2020 6:54 PM CDT) Pathologist Sig nature Phosphorus 3.0 2.5 - 4.5 mg/dL [address] Specimen Blood Performing Organization Address [facility] Phone Number [address] [place] [address] MAGNESIUM (07/12/2020 6:54 PM CDT) Pathologist Sig nature Magnesium 2.0 1.8 - 2.4 mg/dL [address] Specimen Blood Performing Organization Address [facility] Phone Number [address] [place] [address] LACTIC ACID REFLEX TO REPEAT (07/12/2020 6:54 PM CDT) Pathologist Sig nature Lactic Acid 1.2 0.5 - 2.2 mmol/L [address] Specimen Blood Performing Organization Address [facility] Phone Number [address] [place] [address], [place] [address] PTT (07/12/2020 6:54 PM CDT) Pathologist Sig nature APTT 62 (H) 24 - [address] Specimen Blood Performing Organization Address [facility] Phone Number [address] [place] [address] TROPONIN I (07/12/2020 6:54 PM CDT) Pathologist Sig nature Troponin I 0.039 (H) 0.000 - 0.028 ng/mL [place] [address] [facility] Specimen Blood Performing Organization Address City/State/Zipcode Phone Number [place] [address] [facility] [address] [place] [place] [address] documented in this encounter Visit Diagnoses Diagnosis Acute pulmonary embolism with acute cor pulmonale, unspecified pulmonary embolism type (HCC) documented in this encounter Discharge Diagnoses Not on filedocumented in this encounter Administered Medications Medication Order MAR Action Action Date Dose Rate Site acetaminophen (TYLENOL) tablet Given 07/13/2020 6:19 PM CDT 650 mg 650 mg 650 mg, Oral, Every four hours prn, Starting Sat07/12/20 at 2010, Until Discontinued, mild pain, fever, pain scale 3 or less, Pain stratification is defined as follows for either analog scale (0-10) or critical care pain observation tool (CPOT, 0-8). a. No pain (0) b. Mild pain level (1-3) c. Moderate pain level (4-6) d. Severe pain level (greater than or equal to 7) Adult patients: Total dose of acetaminophen from all acetaminophen containing products should not exceed 4 grams (4,000 mg) per day. Pediatric Patients 0 - 3 months: Maximum of 60 mg/kg/24 hours of acetaminophen. Pediatric Patients older than 3 months: Maximum of 75 mg/kg/24 hours of acetaminophen (Never exceeding 4 grams/day)., apixaban (ELIQUIS) tablet 10 mg Given 07/14/2020 5:13 PM CDT 10 mg 10 mg, Oral, Every twelve hours, 14 doses, First dose on Sat07/14/20 at 1800, Last dose on Sat07/21/20 at 0600 apixaban (ELIQUIS) tablet 5 mg 5 mg, Oral, Every twelve hours, First dose on 07/21 at 1800, Until Discontinued hydrALAZINE (APRESOLINE) injection solution Given 07/13/2020 8:18 PM CDT 10 mg 10 mg 10 mg, IV, Every four hours prn, Starting Sat07/13/20 at 1957, Until Discontinued, Systolic >150, 0.5 mL, Use 1st, HYDROmorphone (DILAUDID) injection solut ion (conc: 0.5 mg/0.5mL) 0.25 mg 0.25 mg, IV, Every two hours prn, Starti ng Sat07/12/20 at 2010, Until Discontinued, severe pain, for pain Scale 7 or greater or pain not relieved by medications for Pain Scale 4 to 6, 0.25 mL, Pain stratif ication is defined as follows for either analog scale (0-10) or critical care sandra n observation tool (CPOT, 0-8). a. No pain (0) b. Mild pain level (1-3) c. Moderate pain level (4 -6) d. Severe pain level (greater than or equal to 7), influenza immunization reminder 1 each, Does not apply, Immunization keith or to discharge, First dose on Sat07/12/20 at 2100, Until Discontinued, This patien t is eligible for the influenza vaccine. Administer the vaccine as soon as possib le. Document consent on the Influenza MAR order. If the patient is in the ICU, ad bingo caller the vaccine as soon as patient is eligible for floor transfer. RN to disc ontinue the reminder order AFTER vaccine administration., influenza vaccine split quadrivalent IM injection 0.5 mL 0.5 mL, Intramuscular, Prior to discharg e, 1 dose, Starting Sat07/12/20 at 1945, Until Discontinued, 0.5 mL, Message pharmacy when the dose is needed if not available on unit, labetalol (NORMODYNE;TRANDATE) IV solution 20 Given 9:45 PM CDT 20 mg mg 20 mg, IV, Every four hours prn, Starting Sat07/13/20 at 1957, Until Discontinued, blood pressure, Systolic >150, 4 mL, Use 2nd, metoclopramide (REGLAN) inj soln 5 mg 5 mg, IV, Every six hours prn, Starting Sat07/12/20 at 2010, Until Discontinued, nausea, vomiting, 1 mL, Use SECOND. If ineffective and ondansetron used, call physician for alternative If preference is to further dilute for IV administration: First draw up patient-specific dose, then dilute to 10 mL with 0.9% sodium chloride., omeprazole (priLOSEC) capsule 20 mg Given 07/14/2020 6:21 AM CDT 20 mg 20 mg, Oral, Two times a day before meals, First dose on Sat07/13/20 at 0700, Until Discontinued, Swallow cap whole. Do not crush, chew or open., Given 07/13/2020 6:19 PM CDT 20 mg Given 07/13/2020 6:56 AM CDT 20 mg ondansetron (ZOFRAN) injection solution 4 mg 4 mg, IV, Every four hours prn, Starting Sat07/12/20 at 2009, Until Discontinued, nausea, vomiting, 2 mL, Use FIRST. If ineffective afte r 15 minutes use metoclopramide. If preference is to further dilute for IV administration: First draw up patient-specific dose, then dilute to 10 mL wi th 0.9% sodium chloride., oxyCODONE (OXY-IR) tablet 5 mg Given 07/13/2020 8:18 PM CDT 5 mg 5 mg, Oral, Every four hours prn, Starting Sat07/12/20 at 2010, Until Discontinued, moderate pain, for pain Scale 4 to 6 or pain not relieved by medications for Pain Scale 1 - 3, Pain stratification is defined as follows for either analog scale (0-10) or critical care pain observation tool (CPOT, 0-8). a. No pain (0) b. Mild pain level (1-3) c. Moderate pain level (4-6) d. Severe pain level (greater than or equal to 7), sodium chloride 0.9% flush (adult) 10 mL 10 mL, IV, Two times a day and prn, First dose on Sat07/12/20 at 2100, Until Discontinued, 10 mL, Flush IV line as sc heduled and as often as necessary before and after meds., sodium chloride 0.9% flush (adult) 10 mL Given 07/12/2020 8:25 PM CDT 10 mL 10 mL, IV, Two times a day and prn, First dose on Sat07/12/20 at 2100, Until Discontinued, 10 mL, Flush IV line as scheduled and as often as necessary before and after meds., sodium chloride 0.9% IV solution New Bag 07/13/2020 9:48 AM CDT 75 mL/hr IV, at 75 mL/hr, Continuous, Starting Sat07/12/20 at 2110, Until Discontinued, 1,000 mL New Bag 07/12/2020 8:23 PM CDT 75 mL/hr Medication Order MAR Action Action Date Dose Rate Site alteplase (ACTIVASE) 15 mg New Bag 07/13/2020 4:46 PM CDT 1 mg/hr 10 mL/hr in sodium chloride 0.9% 1 mg/hr (10 mL/hr), Intracatheter, at 10 mL/hr, Continuous, Starting Sat07/13/20 at 1600, Until Sat07/13/20 at 2159, 150 mL, Line #1, alteplase (ACTIVASE) 15 mg in New Bag 07/13/2020 4:46 PM CDT 1 mg /hr 10 mL/hr sodium chloride 0.9% 1 mg/hr (10 mL/hr), Intracatheter, at 10 mL/hr, Continuous, Starting Sat07/13/20 at 1600, Until Sat07/13/20 at 2159, 150 mL, Line # 2, fentaNYL 100 mcg/2 mL preservative free Given 07/13/2020 4:30 P M CDT 25 mcg injection solution 25-300 mcg 25-300 mcg, IV, PRN per parameter, Starting Sat07/13/20 at 1407, Until Sat07/13/20 at 1723, other (Specify), sedation for cardiac catheterization, 6 mL, Pre-Procedure (Cath), procedural area to release, For sedation under direction provider privileged to perform sedation. Do not give on the floor., Given 07/13/2020 4:09 PM CDT 25 mcg Given 07/13/2020 4:02 PM CDT 50 mcg hEParin (50 units/mL) in D5W New Bag 07/14/2020 12:20 PM 15 Un its/kg/hr 35 mL/hr premixed IV solution CDT (STANDARD-weight based) 0-50 Units/kg/hr 116.6 kg (0-116.6 mL/hr), IV, at 0-116.6 mL/hr, Titrate, Starting 07/12/20 at 1925, Until Josey 07/14/20 at 1800, 500 mL, Start initial infusion at 15 units/kg/hr. Notify physician if initial infusion exceeds 1,500 units/hr. Adjust heparin infusion based on sliding scale: * aPTT less than 60 sec ------ Give 70 units/kg IV bolus and add 4 units/kg/hr to current rate * aPTT 60-69.9 sec Give 35 units/kg IV bolus and add 2 units/kg/hr to current rate * aPTT 70-120.9 sec No change (therapeutic) * aPTT 121-135.9 sec Subtract 2 units/kg/hr from current rate * aPTT 136-149.9 sec --------- Hold heparin for 1 hour and subtract 3 units/kg/hr from current rate * aPTT 150 sec or greater - Redraw STAT aPTT and hold heparin. Draw hourly aPTT using routine specified time until less than 150 sec, then restart heparin infusion at 3 units/kg/hr less than the previous rate, give NO BOLUS and resume every 6 hour aPTT. AFTER PROCEDURE: When restarting infusion after it's been held for a procedure, restart infusion at "starting" dose of 15 units/kg/hr and follow titration orders. IF infusion was running at less than 15 units/kg/hr prior to procedure, restart at that rate and follow titration orders., Rate Verify 07/14/2020 8:42 AM CDT 15 Units/kg/hr 35 mL/hr New Bag 07/14/2020 1:55 AM CDT 15 Units/kg/hr 35 mL/hr lidocaine PF (XYLOCAINE-MPF) 1 % preservative Given 4:03 PM CDT 2 mL free injection solution 2 mL 2 mL, Subcutaneous, One time, 1 dose, Sat07/13/20 at 1420, 2 mL, Prep Orders (Cath) if inpatient - floor RN to release midazolam (VERSED) injection solution 0.5-10 Given 0 4:03 PM CDT 2 mg mg 0.5-10 mg, IV, PRN per parameter, Starting Sat07/13/20 at 1407, Until Sat07/13/20 at 1723, other (Specify), sedation for cardiac catheterization, 10 mL, Pre-Procedure (Cath), procedural area to release, For sedation under direction provider privileged to perform sedation. Do not give on the floor., sodium chloride 0.9% IV solution New Bag 07/13/2020 4:46 PM CDT 30 mL/hr Intracatheter, at 30 mL/hr, Continuous, Starting 07/13/20 at 1515, Until Sat07/13/20 at 2114, 1,000 mL, Line # 1, sodium chloride 0.9% IV solution Already Infusing 07/13/2020 10:59 PM 10 mL/hr Intracatheter, at 10 mL/hr, CDT Continuous, Starting Josey 07/14/20 at 0515, Until Josey 07/14/20 at 0714, 1,000 mL, Infuse via EKOS catheter line #1 post alteplase infusion to clear the line, sodium chloride 0.9% IV solution New Bag 07/13/2020 4:46 PM CDT 30 mL/hr Intracatheter, at 30 mL/hr, Continuous, Starting 07/13/20 at 1600, Until Sat07/13/20 at 2159, 1,000 mL, Line # 2, sodium chloride 0.9% IV solution Already Infusing 07/13/2020 10:58 PM 10 mL/hr Intracatheter, at 10 mL/hr, CDT Continuous, Starting Josey 07/14/20 at 0515, Until Josey 07/14/20 at 0714, 1,000 mL, Infuse via EKOS catheter line #2 post alteplase infusion to clear the line, warfarin (COUMADIN) tablet 5 mg Given 07/13/2020 12:30 AM CDT 5 mg 5 mg, Oral, Warfarin one time dose, 1 dose, Sat07/13/20 at 0000, If patient is receiving tube feeding, hold tube feeding 1 hour before and 1 hour after warfarin administration. If unable to administer dose intact, wear universal precautions (one pair of gloves)., warfarin (COUMADIN) tablet 5 mg Given 07/13/2020 6:19 PM CDT 5 mg 5 mg, Oral, Warfarin one time dose, 1 dose, 07/13/20 at 1600, If patient is receiving tube feeding, hold tube feeding 1 hour before and 1 hour after warfarin administration. If unable to administer dose intact, wear universal precautions (one pair of gloves)., documented in this encounter
== END 2020-07-12 15:10 ==
LOC: JD.ED 12:59
DX: U07.1 COVID-19 (principal); I26.99 Other pulmonary embolism without acute cor pulmonale
CPT/HCPCS: 96365; 99285; J1644; J7030

== ENCOUNTER 2020-07-16 23:09 | Emergency (ER) | payer BC ==
--- NOTE | 2020-07-17 00:34 | EDM.PDOC ---
ED HPI GENERAL MEDICAL PROBLEM - General Chief Complaint: Cardiovascular Problem Stated Complaint: HIGH BLOOD PRESSURE Time Seen by Provider: 07/17/20 00:11 Source of Information: Reports: Patient History Limitations: Reports: No Limitations - History of Present Illness INITIAL COMMENTS - FREE TEXT/NARRATIVE: Mr. Mederos is a very pleasant 49-year-old gentleman who now presents to the ED with elevated blood pressure. He states that he was diagnosed with COVID-19 on 06/02/2020. He then developed dyspnea on exertion on 07/10/2020. He was seen in the clinic on 07/12/2020, where he was found to have a decreased oxygen saturation and an elevated D-dimer. He was sent for a CT angiogram of his chest, but during the CT study, his blood pressure was found to be significantly elevated, therefore he was sent to the ED. The CT scan found extensive pulmonary emboli, therefore the patient was started on a heparin drip before being transferred to [facility]. While there, the patient underwent catheter directed thrombolysis and 2 echocardiograms, with the second echocardiogram showing improvement in his cardiac function. His blood pressure normalized. He was told that his initial elevated blood pressure was due to his heart working hard to push blood through his block pulmonary vessels. He was discharged home on 07/14/2020 on Eliquis, and instructions to follow-up in 4 weeks. He was not prescribed any BP medications. The patient states that while in bed tonight, he developed rapid palpitations. He checked his blood pressure, finding it to be elevated at 201/108. His BP was 138/77 just yesterday. No recent chest pain, nausea, dyspnea, or diaphoresis. No recent fever, chills, nausea, or vomiting. Here in the ED, the patient's initial BP is found to be elevated at 186/103. He is otherwise hemodynamically stable, afebrile, saturating 96% on room air. The patient states that his rapid palpitations resolved about the time he arrived to the ED. Other than the above symptoms, the patient denies having a recent fever, chills, sore throat, ear pain, nasal or sinus congestion, cough, dyspnea, chest pain, nausea, vomiting, constipation, diarrhea, abdominal pain, urinary symptoms, recent weight gain or weight loss, recent bloody bowel movements or black bowel movements, recent joint aches, headaches, or rashes. The patient's PCP is MENDOZA Alvarez. - Related Data Allergies Allergy/AdvReac Type Severity Reaction Status Date / Time No Known Allergies Allergy Verified 07/12/20 13:10 Home Meds: Home Meds Dextroamphetamine/Amphetamine [Mydayis ER 25 mg Capsule] 25 mg PO DAILY PRN 12/30/19 [History] Past Medical History Respiratory History: Reports: PE (dx'd 07/12/2020) Psychiatric History: Reports: ADHD (treated prn) Endocrine/Metabolic History: Reports: Obesity/BMI 30+ - Infectious Disease History Infectious Disease History: Reports: Novel Coronavirus (dx'd 06/02/2020) - Past Surgical History HEENT Surgical History: Reports: Oral Surgery (wisdom teeth extraction) Musculoskeletal Surgical History: Reports: Other (See Below) (Right Achilles tendon repair Dec 2019) Social & Family History - Tobacco Use Smoking Status *Q: Never Smoker - Caffeine Use Caffeine Use: Reports: Coffee, Soda - Alcohol Use Alcohol Use History: Yes Alcohol Use Frequency: Socially - Recreational Drug Use Recreational Drug Use: No - Living Situation & Occupation Living situation: Reports: , with Spouse, with Family (1 daughter) Occupation: Employed (Contractor) ED ROS GENERAL - Review of Systems Review Of Systems: Comprehensive ROS is negative, except as noted in HPI. ED EXAM, GENERAL - Physical Exam Exam: See Below Exam Limited By: No Limitations General Appearance: Alert, WD/WN, No Apparent Distress Eye Exam: Bilateral Eye: EOMI, Normal Inspection Ears: Normal External Exam, Hearing Grossly Normal Nose: Normal Inspection Throat/Mouth: Normal Inspection, Normal Lips, Normal Voice, No Airway Compromise Head: Atraumatic, Normocephalic Neck: Normal Inspection, Full Range of Motion Respiratory/Chest: No Respiratory Distress, Lungs Clear, Normal Breath Sounds, No Accessory Muscle Use Cardiovascular: Normal Peripheral Pulses, Regular Rate, Rhythm, No Edema, No Gallop, No JVD, No Murmur, No Rub Peripheral Pulses: 3+: Radial (L), Radial (R) GI/Abdominal: Normal Bowel Sounds, Soft, Non-Tender, No Organomegaly, No Distention, No Abnormal Bruit, No Mass (Male) Exam: Deferred Rectal (Males) Exam: Deferred Back Exam: Normal Inspection, Full Range of Motion, NT Extremities: Normal Inspection, Normal Range of Motion, No Pedal Edema, Normal Capillary Refill Neurological: Alert, Oriented, Normal Cognition, No Motor/Sensory Deficits Psychiatric: Normal Affect Skin Exam: Warm, Dry, Intact, Normal Color, No Rash EKG INTERPRETATION EKG Date: 07/17/20 Time: 00:42 Rhythm: NSR Rate (Beats/Min): 76 [place]: Normal P-Wave: Present QRS: Normal ST-T: Normal QT: Normal Comparison: NA - No Prior EKG Course - Vital Signs Last Recorded V/S: Last Vital Signs Temp 36.9 C 07/16/20 23:27 Pulse 96 07/16/20 23:27 Resp 20 07/16/20 23:27 BP 186/103 H 07/16/20 23:27 Pulse Ox 96 07/16/20 23:27 - Orders/Labs/Meds Orders: Active Orders 24 hr Category Date Time Status Ang Chest [CT] Stat Exams 07/17/20 02:24 Taken Chest 2V [CR] Stat Exams 07/17/20 00:34 Taken Labs: Laboratory Tests 07/17/20 07/17/20 Range/Units 01:00 01:00 WBC 8.60 (4.23-9.07) K/mm3 RBC 5.83 (4.63-6.08) M/mm3 Hgb 16.5 (13.7-17.5) gm/dl Hct 48.9 (40.1-51.0) % MCV 83.9 (79.0-92.2) fl MCH 28.3 (25.7-32.2) pg MCHC 33.7 (32.2-35.5) g/dl RDW Std Deviation 41.9 (35.1-43.9) fL Plt Count 214 (163-337) K/mm3 MPV 9.6 (9.4-12.3) fl Neutrophils % (Manual) 63 H (40-60) % Band Neutrophils % 0 (0-10) % Lymphocytes % (Manual) 27 (20-40) % Atypical Lymphs % 0 % Monocytes % (Manual) 8 (2-10) % Eosinophils % (Manual) 2 (0.8-7.0) % Basophils % (Manual) 0 L (0.2-1.2) Platelet Estimate Adequate RBC Morph Comment Normal Sodium 137 (136-145) mEq/L Potassium 3.8 (3.5-5.1) mEq/L Chloride 103 (98-107) mEq/L Carbon Dioxide 24 (21-32) mEq/L Anion Gap 13.8 (5-15) BUN 16 (7-18) mg/dL Creatinine 1.2 (0.7-1.3) mg/dL Est Cr Clr Drug Dosing 73.65 mL/min Estimated GFR (MDRD) > 60 (>60) mL/min BUN/Creatinine Ratio 13.3 L (14-18) Glucose 199 H (74-106) mg/dL Calcium 9.3 (8.5-10.1) mg/dL Magnesium 1.9 (1.8-2.4) mg/dl Total Bilirubin 0.6 (0.2-1.0) mg/dL AST 25 (15-37) U/L ALT 46 (16-63) U/L Alkaline Phosphatase 74 (46-116) U/L Troponin I < 0.017 (0.00-0.056) ng/mL Total Protein 7.7 (6.4-8.2) g/dl Albumin 3.9 (3.4-5.0) g/dl Globulin 3.8 gm/dL Albumin/Globulin Ratio 1.0 (1-2) Meds: Medications Discontinued Medications Generic Name Dose Route Start Last Admin Trade Name Freq PRN Reason Stop Dose Admin Sodium Chloride 1,000 mls @ 150 mls/hr 07/17/20 02:30 07/17/20 02:51 Normal Saline IV 150 mls/hr ASDIRECTED TOREY Administration Iopamidol 100 ml 07/17/20 02:54 07/17/20 02:57 Isovue-370 (76%) IVPUSH 07/17/20 02:55 100 ml ONETIME ONE Administration Sodium Chloride 10 ml 07/17/20 02:54 07/17/20 02:58 Saline Flush FLUSH 07/17/20 02:55 10 ml ONETIME ONE Administration - Re-Assessments/Exams Free Text/Narrative Re-Assessment/Exam: 07/17/20 00:30 As above, the patient was diagnosed with COVID-19 on 06/02/2020, then was diagnosed with a extensive PE on 07/12/2020, with transfer to [facility] for catheter-directed thrombolysis. His blood pressure had initially been elevated, but diminished over time. He was told that his blood pressure was elevated due to his heart working hard to push blood past the blood clots in his lungs. He was discharged home on Eliquis, but no blood pressure medicines. He now presents with rapid palpitations and an elevated BP at home, however, his BP has improved since arrival to the ED, with the most recent reading of 173/93. Current guidelines do not recommend emergent treatment at this blood pressure level, because the patient's blood pressure is ordinarily not elevated - it was essentially normal as recently as yesterday - I do not believe starting the patient on an antihypertensive would be in his best interest, because he would likely develop hypotension. The patient's physical exam is unremarkable. At present, I am having the patient rest in a darkened room. I will order some blood work, a chest x-ray, and an ECG. 07/17/20 01:55 Two-view chest radiograph appears to be grossly normal. The cardiac silhouette is within normal limits. No pulmonary vascular congestion. No pleural effusions. No focal infiltrate. No pneumothorax. Formal read per the Radiologist pending. The patient's CBC is unremarkable. His CMP is remarkable for blood glucose elevated at 199, and is otherwise unremarkable. His magnesium level is within normal limits at 1.9. His troponin is undetectably low. At present, the patient's BP is 176/87, with a HR of 86 bpm, and an oxygen saturation of 96% on room air. 07/17/20 02:04 Case discussed with Augustina at [facility] at 01:57. Case then discussed with Dr. Trivedi, Garage Door Opener Installer at [facility], at 02:01. She has never heard of a failure of Eliquis, but recommended that we repeat the CT angiogram of the chest, to see if there is a new clot burden. 07/17/20 02:23 Case discussed with the [facility] Radiologist at 02:20. He believes that if we pushed the previous CT angiogram for comparison, that he would be able to determine if there is a new clot burden. That being the case, I will order a CT angiogram of the chest, along with IV fluid. 07/17/20 02:31 My conversations with the Garage Door Opener Installer and Radiologist, and the Garage Door Opener Installer's recommendation to repeat the CTA discussed with the patient. The patient is not happy about having to wait for the results of the CT angiogram. He preferred that I simply give him something for his blood pressure. I explained that there is no medical indication to emergently treat a BP of 176/87 with no neurologic symptoms, and that the reason that I am concerned is because it may represent a new pulmonary embolus, and therefore a failure of Eliquis. The patient agreed to proceed with it. 07/17/20 03:11 CT angiogram of the chest is read by Hilary as "Grossly unchanged pulmonary emboli into the bilateral main pulmonary arteries and extending into the segmental branches of the bilateral lower lobes. No evidence of a right heart strain. New right lower lobe and left upper lobe small subpleural focal consolidations that could represent pulmonary infarcts." 07/17/20 03:24 CT angiogram results discussed with the patient. CT results aside, the patient does not have pleuritic chest pain or hemoptysis, which would be expected with multiple pulmonary infarcts, and even if he did suffer some pulmonary infarct in the interim, there is nothing that can be done about it now. Because his clot burden appears to be unchanged, it does not appear that the patient is suffering from a failure of Eliquis. I am therefore recommending that he continue to take his Eliquis as prescribed, however, I would like him to contact his Garage Door Opener Installer at [facility] on 07/18/2020, to see what he thinks. In the meantime, if the patient develops worsening symptoms, I would like him to return to the ED for reevaluation. Departure - Departure Time of Disposition: 03:29 Disposition: Home, Self-Care 01 Condition: Good Clinical Impression: Elevated blood pressure reading, Rapid palpitations, Prediabetes, Pulmonary embolus with infarction - Discharge Information *PRESCRIPTION DRUG MONITORING PROGRAM REVIEWED*: Not Applicable *COPY OF PRESCRIPTION DRUG MONITORING REPORT IN PATIENT RODRIGUEZ: Not Applicable Instructions: Pulmonary Embolism Referrals: Jennifer Dooley PA-C [Primary Care Provider] - Forms: ED Department Discharge Additional Instructions: You were seen in the emergency room after waking with rapid palpitations and finding your blood pressure to be elevated. Work-up in the ER included blood work, a chest x-ray, a CT angiogram of your chest, and an ECG. Your blood work found your blood sugar to be elevated at 199. This indicates that you have prediabetes, a condition where your blood sugar will go up under stressful conditions, but be normal when you are not under stress. We recommend that you go to the [employer] website and click on the section "Nutrition" to learn about a diabetic diet, also known as a low g lycemic index diet. We recommend that you follow-up with your PCP, MENDOZA Alvarez, for further advice regarding prediabetes. The CT angiogram found new right lower lobe and left upper lobe small subpleural focal consolidations that could represent pulmonary infarcts. These were not present on your CT angiogram from 07/12/2020. The amount of clot burden in your lungs was estimated to be unchanged by the Radiologist. As best we can tell, you have not suffered a failure of your Eliquis. We recommend that you continue to take Eliquis as prescribed, however, we recommend that you contact your Garage Door Opener Installer at [facility] this coming 07/18/2020, to see if they would like to switch you to a different anticoagulant. If any other problems, including worsening symptoms, please do not hesitate to return to the ER. Sepsis Event Note (ED) - Evaluation Sepsis Screening Result: No Definite Risk - Focused Exam Vital Signs: Vital Signs Temp Pulse Resp BP Pulse Ox 07/16/20 23:27 36.9 C 96 20 186/103 H 96 - My Orders Last 24 Hours: My Active Orders 07/17/20 00:34 Chest 2V [CR] Stat 07/17/20 02:24 Ang Chest [CT] Stat - Assessment/Plan Last 24 Hours: My Active Orders 07/17/20 00:34 Chest 2V [CR] Stat 07/17/20 02:24 Ang Chest [CT] Stat
[2020-07-17] MEDS ORDERED: Sodium Chloride 0.9% 1,000 ML IV SCH (02:30)
[2020-07-17] MEDS ORDERED: Iopamidol 755 Mg/ML 100 ML Bottle IVPUSH ONE (02:54)
[2020-07-17] MEDS ORDERED: Sodium Chloride 0.9% 10 ML Syringe FLUSH ONE (02:54)
--- NOTE | 2020-07-17 11:25 | CR ---
Chest: 2 views of the chest were obtained. Comparison: Prior chest x-ray of 07/12/20. Slight density is noted within the left lung base. Difficult to exclude minimal area of pneumonia. Findings are an interval change from prior chest x-ray. Lungs otherwise are clear. Heart size at the upper limits of normal. Upper mediastinum is normal. No discrete bony abnormality seen for age. Impression: 1. Slight parenchymal density within the left lung base. Given prior pulmonary embolism noted on chest CT study of 07/12/20, current findings likely represent developing pulmonary infarct. 2. Nothing acute is otherwise seen. Diagnostic code #3 Study was dictated in MDT
--- NOTE | 2020-07-17 11:25 | CT ---
CT chest Technique: Multiple axial sections through the chest were obtained. Intravenous contrast was utilized. Study performed as a pulmonary angiogram protocol. Comparison: Prior chest CT study of 07/12/20. Findings: Pulmonary emboli are again noted within the distal pulmonary arteries extending into segmental and subsegmental branches within both lower lungs. Lesser upper lobe pulmonary embolism is seen. No definite change from previous study is seen. No bowing of the interventricular septum is seen as suggested on prior study with nothing to indicate right heart strain at this time. Mediastinum shows small lymph nodes believed to be within normal limits. Slight parenchymal density within the right and left lung bases. These are and interval change from previous exam and findings most likely representing developing pulmonary infarcts. Lungs otherwise are clear. No acute parenchymal change is otherwise seen. Bone window settings were reviewed. Slight degenerative change is noted within the spine. Impression: 1. Extensive pulmonary emboli as noted above. No definite change from previous study is seen. 2. Small areas of parenchymal density within the left and right lung bases most likely representing developing areas of pulmonary infarct which are an interval change from prior exam. 3. No findings on current chest CT to indicate right ventricular strain. Diagnostic code #5 Study was dictated in MDT Agree with preliminary report issued by [employer] ([employer] preliminary report dictated on 07/17/20, 4:08 AM Central Daylight Time) Study was dictated in [facility] Time
== END 2020-07-17 03:51 | disposition home or self-care (01) ==
LOC: JD.ED 23:09
DX: I26.99 Other pulmonary embolism without acute cor pulmonale (principal); R03.0 Elevated blood-pressure reading, without diagnosis of hypertension; R73.03 Prediabetes; E66.9 Obesity, unspecified; Z68.36 Body mass index [BMI] 36.0-36.9, adult
CPT/HCPCS: 36415; 71046; 71275; 80053; 83735; 84484; 85007; 85027; 93005; 96360; 99285; J7030; Q9967; 93010; 99284